=== PATIENT | female | born 1950 | race Caucasian/White ===

== ENCOUNTER → 2019-03-19 13:49 | Outpatient (CLI) | payer MEDICARE, OTHER, SELFPAY ==
[2019-03-19 09:38] VITALS: BMI 27.8
[2019-03-19 14:03] LABS: Mucous, Urine 0 SEEN /hpf (<or=2+)
[2019-03-19 14:05] LABS: Color, Urine Yellow (Yellow); Glucose, Dipstick Normal (Normal); Ketone-Dipstick Negative (Negative); Leukocyte Esterase-Dipstick 25 /ul (Negative); Nitrite-Dipstick Positive (Negative); Occult Blood-Urine 250 /ul (Negative); Protein-Dipstick Negative (Negative); Specific Gravity, Urine 1.015 (1.002-1.030); Urine Bilirubin Dipstick Negative (Negative); Urine Clarity Sl. Cloudy (Clear); Urine Urobilinogen Normal (Normal)
[2019-03-19 14:13] LABS: Bacteria 3+ /hpf (None Seen); Red Blood Cells-Urine 0-5 SEEN /hpf (0-5); Squamous Epithelial Cells - UA 0-5 SEEN /hpf (5-10); White Blood Cells 0-5 SEEN /hpf (0-5)
== END ==
PROVIDERS: Referring Provider Physician Assistant Surgical; Visit Provider Physician Assistant Surgical
DX: R31.9 Hematuria, unspecified (principal)
CPT/HCPCS: 81001; 87077; 87086; 87088; 87186

== ENCOUNTER → 2022-04-23 | Outpatient (CLI) | payer MEDICARE, OTHER, SELFPAY ==
[2022-04-23 10:40] LABS: Mucous, Urine 0 SEEN /hpf (<or=2+)
[2022-04-23 10:41] LABS: Color, Urine Red (Yellow); Glucose, Dipstick Normal (Normal); Ketone-Dipstick Negative (Negative); Leukocyte Esterase-Dipstick 25 /ul (Negative); Nitrite-Dipstick Negative (Negative); Occult Blood-Urine 250 /ul (Negative); Protein-Dipstick 30 mg/dl (Negative); Urine Bilirubin Dipstick Negative (Negative); Urine Clarity Sl. Cloudy (Clear); Urine Urobilinogen Normal (Normal)
[2022-04-23 10:49] LABS: Bacteria 1+ /hpf (None Seen); Red Blood Cells-Urine 25-50 SEEN /hpf (0-5); Squamous Epithelial Cells - UA 0-5 SEEN /hpf (5-10); White Blood Cells 0-5 SEEN /hpf (0-5)
== END | disposition home or self-care (01) ==
LOC: LABSPEC 10:26
PROVIDERS: Referring Provider Physician Assistant Surgical; Visit Provider Physician Assistant Surgical
DX: R31.9 Hematuria, unspecified (principal)
CPT/HCPCS: 81001; 87086; 87088

== ENCOUNTER 2022-05-06 14:23 | Outpatient (RCR) | payer MEDICARE, OTHER, SELFPAY ==
[2022-05-06 18:20] LABS: International Normalized Ratio 2.8; Prothrombin Time (Protime)PT. 28.8 SECONDS (11.7-14.9)
== END 2022-05-06 18:00 | disposition home or self-care (01) ==
LOC: MTLAB 14:23
DX: I48.0 Paroxysmal atrial fibrillation (principal); Z79.01 Long term (current) use of anticoagulants
CPT/HCPCS: 36415; 85610

== ENCOUNTER 2022-05-30 10:52 | Outpatient (RCR) | payer MEDICARE, OTHER, SELFPAY ==
[2022-05-30 12:22] LABS: International Normalized Ratio 2.7; Prothrombin Time (Protime)PT. 28.1 SECONDS (11.7-14.9)
== END 2022-05-30 18:00 | disposition home or self-care (01) ==
LOC: MTLAB 10:52
DX: I48.0 Paroxysmal atrial fibrillation (principal); Z79.01 Long term (current) use of anticoagulants
CPT/HCPCS: 36415; 85610

== ENCOUNTER → 2023-04-16 | Outpatient (CLI) | payer MEDICARE, OTHER, SELFPAY ==
--- NOTE | 2023-04-16 10:59 | RAD_ITS ---
INDICATION: injury EXAMINATION/TECHNIQUE: X-RAY - LEFT XR Ankle Min 3 Views 3 VIEWS COMPARISON: FINDINGS: SOFT TISSUES: There is extensive soft tissue edema surrounding the left ankle. BONES/JOINTS: No acute fracture or subluxation.. Normal alignment. Preservation of the joint space.. No sclerotic or destructive changes observed. RAD/Ankle min 3 Views IMPRESSION: Extensive soft tissue edema without evidence for acute fracture or dislocation. Electronically Signed: Guille Gracia, at 11:11 EDT ,
== END | disposition home or self-care (01) ==
LOC: MTRAD 10:57
PROVIDERS: Referring Provider Physician Assistant; Visit Provider Physician Assistant
DX: S93.402A Sprain of unspecified ligament of left ankle, initial encounter (principal); X58.XXXA Exposure to other specified factors, initial encounter
CPT/HCPCS: 73610

== ENCOUNTER → 2023-04-29 | Outpatient (CLI) | payer MEDICARE, OTHER, SELFPAY ==
[2023-04-29 14:29] LABS: International Normalized Ratio 3.6; Prothrombin Time (Protime)PT. 36.5 SECONDS (11.7-14.9)
== END | disposition home or self-care (01) ==
DX: I48.0 Paroxysmal atrial fibrillation (principal); Z79.01 Long term (current) use of anticoagulants
CPT/HCPCS: 36415; 85610

== ENCOUNTER 2023-05-22 10:01 | Outpatient (RCR) | payer MEDICARE, OTHER, SELFPAY ==
[2023-06-11 15:29] LABS: INR Fingerstick 1.8; Prothrombin Time Fingerstick 19.9 SEC (11.7-14.9)
== END 2023-05-22 18:00 | disposition home or self-care (01) ==
LOC: MTLAB 10:01
DX: I48.0 Paroxysmal atrial fibrillation (principal); Z79.01 Long term (current) use of anticoagulants
CPT/HCPCS: 36416; 85610

== ENCOUNTER 2024-05-06 10:07 | Outpatient (RCR) | payer MEDICARE, OTHER, SELFPAY ==
[2024-04-29 10:57] LABS: INR Fingerstick 1.7; Prothrombin Time Fingerstick 18.1 SEC (11.7-14.9)
[2024-05-06 10:25] LABS: INR Fingerstick 1.7; Prothrombin Time Fingerstick 17.9 SEC (11.7-14.9)
== END 2024-05-06 18:00 | disposition home or self-care (01) ==
LOC: MTLAB 10:07
DX: I48.0 Paroxysmal atrial fibrillation (principal)
CPT/HCPCS: 36416; 85610

== ENCOUNTER 2024-05-27 10:18 | Outpatient (RCR) | payer MEDICARE, OTHER, SELFPAY ==
[2024-05-27 12:22] LABS: International Normalized Ratio 3.8; Prothrombin Time (Protime)PT. 37.2 SECONDS (11.7-14.9)
== END 2024-05-27 18:00 | disposition home or self-care (01) ==
LOC: MTLAB 10:18
DX: I48.0 Paroxysmal atrial fibrillation (principal)
CPT/HCPCS: 36415; 85610

== ENCOUNTER → 2025-03-14 | Outpatient (CLI) | payer MEDICARE, OTHER, SELFPAY ==
[2025-03-14 09:50] LABS: Prothrombin Time Fingerstick 30.8 SEC (11.7-14.9)
--- OUTSIDE RECORDS SUMMARY | 2025-03-14 21:34 | XMS RPT_ITS | CCD ---
Author Organization [facility] Care Team Providers Care Flumer Name Role Phone ALLI Sadler Attending Provider [phone] Care Physician, No Primary Primary Care Provider Unavailable Care Physician, No Primary Referring Provider Un available ALLI Celeste Attending Provider ALLI Natarajan Attending Provider RICH, LAURIE Attending Unavailable RICH, LAURIE Referring Unavailable RICH, LAURIE Primary Care Unavailable RICH, LAURIE Attending Unavailable RICH, LAURIE Referring Unavailable RICH, LAURIE Primary Care Unavailable RICH, LAURIE Attending Unavailable RICH, LAURIE Referring Unavailable RICH, LAURIE Primary Care Unavailable Allergies Allergy Classification Reported Allergen(s) Allergy Type Date of Onset Reaction(s) Facility (5 sources) Codeine Drug Allergy 04-26-[address] [facility] (3 sources) egg extract Drug Allergy 04-16-[address] [facility] (1 source) Codeine Drug Allergy 04-26-2022 [facility] (1 source) egg extract Drug Allergy 04-16-2023 [facility] Medications Current Medications Medication Drug Class(es) Dates Sig (Normalized) Sig (Original) cephalexin 500 mg oral capsule (13 sources) Cephalosporin Antibacterial Start: 04-16-2023 take 500 mg by mouth three times daily Cephalexin Active 500 MG PO THREE TIMES A DAY April 16, 2023 12:00am Start: 04-22-2022 End: 05-02-2022 take 500 mg by mouth every twelve hours Cephalexin Discontinued 500 MG PO Q12H 11 07April 22, 2022 12:00am May 02, 2022 12:03am Start: 03-19-2019 End: 03-31-2019 take 500 mg by mouth every twelve hours Cephalexin Discontinued 500 MG PO Q12H 11 07March 19, 2019 12:00am March 31, 2019 12:07am dexamethasone 4 mg oral tablet (5 sources) Corticosteroid Start: 04-26-2022 take 1 tablet by mouth once daily Dexamethasone (Decadron) 4 mg tablet Active 4 MG PO DAILY April 26, 2022 12:00am levothyroxine sodium 0.1 mg oral capsule (5 sources) l-Thyroxine Start: 03-19-2019 take 1 capsule by mouth once daily levothyroxine 100 mcg capsule Active 100 MCG PO DAILY March 19, 2019 12:00am loxapine 25 mg oral capsule (5 sources) Start: 03-19-2019 Loxapine Succinate Active PO March 19, 2019 12:00am metFORMIN hydrochloride 1000 mg oral tablet (5 sources) Biguanide Start: 03-19-2019 take 1000 mg by mouth once daily Metformin Active 1000 MG PO DAILY March 19, 2019 12:00am metoprolol tartrate 25 mg oral tablet (5 sources) beta-Adrenergic Julianne Start: 03-19-2019 take 25 mg by mouth twice daily Metoprolol Tartrate Active 25 MG PO TWICE A DAY March 19, 2019 12:00am rivaroxaban 20 mg oral tablet (5 sources) Factor Xa Inhibitor Start: 03-19-2019 take 1 tablet by mouth once daily Rivaroxaban (Xarelto) 20 mg tablet Active 20 MG PO DAILY March 19, 2019 12:00am rosuvastatin calcium 10 mg oral tablet (5 sources) HMG-CoA Reductase Inhibitor Start: 03-19-2019 take 10 mg by mouth once daily Rosuvastatin Active 10 MG PO DAILY March 19, 2019 12:00am Completed/Discontinued Medications Medication Drug Class(es) Dates Sig (Normalized) Sig (Original) Nirmatrelvir-Ritona vir (5 sources) Start: 04-26-2022 End: 04-16-2023 Nirmatrelvir-Ritonav ir (Paxlovid (Eua)) 300 mg (150 mg x 2)-100 mg tablets,dose pack Discontinued 0 PO .COMPLEX April 26, 2022 12:00am April 16, 2023 10:48am take TWO 150 mg tablets of nirmatrelvir with ONE 100 mg tablet of ritonavir twice daily for 5 days PO Start: 04-26-2022 Nirmatrelvir-R itonavir (Paxlovid (Eua)) 300 mg (150 mg x 2)- 100 mg tablets,dose pack Active 0 PO .COMPLEX April 26, 2022 12:00am take TWO 150 mg tablets of nirmatrelvir with ONE 100 mg tablet of ritonavir twice daily for 5 days PO Problems Problem Classification Problem Date Documented Da te Episodic/Chronic Cardiac dysrhythmias (1 source) Paroxysmal atrial fibrillation; Translations: [Paroxysmal atrial fibrillation] Onset: 06-22-2024 Chronic Other non-traumatic joint disorders (3 sources) Ankle edema; Translations: [Effusion, left ankle] 04-16-2023 Episodic Other non-traumatic joint disorders (3 sources) Effusion, left ankle; Translations: [Effusion of joint, ankle and foot] 04-16-2023 Episodic Skin and subcutaneous tissue infections (6 sources) Cellulitis of left ankle; Translations: [Cellulitis of left lower limb] 04-16-2023 Episodic Sprains and strains (6 sources) Sprain of ankle; Translations: [Sprain of unspecified ligament of left ankle, initial encounter] 04-16-2023 Episodic Urinary tract infections (7 sources) Cystitis; Translations: [Cystitis, unspecified without hematuria] Episodic Viral infection (7 sources) Disease caused by 2019-nCoV; Translations: [COVID-19] Episodic Results Test Name Value Interpretation Reference Range Facil ity Prothrombin Time w/INRon INR Coag (PPP) [Relative time] 3.8 {INR} Normal [facility] Comment on above: Performed By: #### L 300.3900 #### [facility] [address] [place], [place], [id number] PT Coag (PPP) [Time] 37.2 s High 11.7-14.9 [facility] Comment on above: Performed By: #### L 300.3900 #### [facility] [address] [place], [address] Protime w/INR Fingerstickon 05-06-2024 INR Coag (PPP) [Relative time] 1.7 {INR} Normal [facility] Comment on above: Result Comment: Crit ical Value > 4.0 Performed By: #### L [id number] #### [facility] [address] [place], [address] Protime [place] 17.9 SEC High 11.7-14.9 [facility] Comment on above: Performed By: #### L [id number] #### [facility] [address] [place], [address] Protime w/INR Fingerstickon 04-29-2024 INR Coag (PPP) [Relative time] 1.7 {INR} Normal [facility] Comment on above: Result Comment: Crit ical Value > 4.0 Performed By: #### L [id number] #### [facility] [address] [place], [address] Protime [place] 18.1 SEC High 11.7-14.9 [facility] Comment on above: Performed By: #### L [id number] #### [facility] [address] [place], [address] INR in Blood by Coagulation assayon 04-29-2023 INR Coag (Bld) [Relative time] 3.6 {INR} [facility] - Coagulationon 0 04-29-2023 PT Coag (PPP) [Time] 36.5 s 11.7-14.9 [facility] INR in Blood by Coagulation assayon 05-30-2022 INR Coag (Bld) [Relative time] 2.7 {INR} [facility] Work Phone: Laboratory - Coagulationon 0 05-30-2022 PT Coag (PPP) [Time] 28.1 s 11.7-14.9 [facility] Work Phone: INR in Blood by Coagulation assayon 05-06-2022 INR Coag (Bld) [Relative time] 2.8 {INR} [facility] Work Phone: Laboratory - Coagulationon 0 05-06-2022 PT Coag (PPP) [Time] 28.8 s 11.7-14.9 [facility] Work Phone: Laboratory - Microbiology an d Antimicrobial susceptibilityon 04-26-2022 SARS-CoV-2 (COVID-19) RNA MAURILIO+probe Ql (Unsp spec) Detected [facility] Work Phone: No Panel Informationon 04-26 POC Nasal Swab Influenza A,B Not detected [facility] Work Phone: POC Nasal Swab RSV Not detected [facility] Work Phone: Basophil percentageon 2021 Basophil percentage 0-5 SEEN /hpf 0-5 [facility] Work Phone: Bilirubin Test strip Ql (U)o n 04-23-2022 Bilirubin Ql (U) Negative Negative [facility] Work Phone: Ketones Test strip Ql (U)on 04-23-2022 Ketones Ql (U) Negative Negative [facility] Work Phone: Mucus LM Ql (Urine sed)on Mucus Ql (Urine sed) 0 SEEN /hpf [facility] Work Phone: Nitrite Test strip Ql (U)on 04-23-2022 Nitrite Ql (U) Negative Negative [facility] Work Phone: Protein Test strip Ql (U)on 04-23-2022 Protein Ql (U) 30 mg/dl Negative [facility] Work Phone: Squamous epithelial cells de tection in urine sediment by light microscopyon 04-23-2022 Epithelial cells.squamous LM Ql (Urine sed) 0-5 SEEN /hpf 5-10 [facility] Work Phone: Urine blood detectionon RBC Ql (U) 250 /ul Negative [facility] Work Phone: RBC Ql (U) 25-50 SEEN /hpf 0-5 [facility] Work Phone: Urine clarityon 04-23-2022 Clarity (U) Sl. Cloudy Clear [facility] Work Phone: Urine color determinationon 04-23-2022 Color (U) Red Yellow [facility] Work Phone: Urine glucose detectionon Glucose Ql (U) Normal mg/dl Normal [facility] Work Phone: Urine leukocyte esterase det ection by dipstickon 04-23-2022 Leukocyte esterase Test strip Ql (U) 25 /ul Negative [facility] Work Phone: Urine pHon 04-23-2022 pH (U) 6.0 [pH] 5.0 - 8.0 [facility] Work Phone: Urine sediment bacteria coun t by microscopy (number/high power field)on 04-23-2022 Bacteria LM.HPF (Urine sed) [#/Area] 1 /[HPF] None Seen [facility] Work Phone: Urine specific gravity measu rementon 04-23-2022 Specific gravity (U) [Rel density] 1.010 1.002-1.030 [facility] Work Phone: Urobilinogen Auto test strip Ql (U)on 04-23-2022 Urobilinogen Ql (U) Normal mg/dl Normal [facility] Work Phone: Laboratory - Chemistry and C hemistry - challengeon 04-22-2022 Bilirubin Ql (U) Negative [facility] Work Phone: Glucose Ql (U) Negative [facility] Work Phone: Ketones Ql (U) Trace (5) [facility] Work Phone: pH (U) 6.0 [pH] [facility] Work Phone: Specific gravity (U) [Rel density] 1.015 [facility] Work Phone: Urobilinogen (U) [Mass/Vol] Negative [facility] Work Phone: Laboratory - Hematology and Cell countson 04-22-2022 Hemoglobin Ql (U) Hemolyzed [facility] Work Phone: Laboratory - Specimen inform ationon 04-22-2022 Clarity (U) Cloudy [facility] Work Phone: Color (U) ORANGE [facility] Work Phone: Laboratory - Urinalysison Nitrite Ql (U) Negative [facility] Work Phone: Protein Ql (U) Negative [facility] Work Phone: No Panel Informationon 04-[address] [facility] Work Phone: Urine Non-Hemolyzed Blood Large [facility] Work Phone: Culture, urine Bacteria identified Cx Nom (U) Positive [facility] Work Phone: Vital Signs Date Time Vital Sign Value Performing Clinician Facility 04-16-2023 10:46-0400 Body temperature 98 [degF] ALLI CARSON Work Phone: [facility] 04-16-2023 10:46-0400 Diastolic blood pressure 78 mm[Hg] ALLI CARSON Work Phone: [facility] 04-16-2023 10:46-0400 Heart rate 72 /min ALLI CARSON Work Phone: [facility] 04-16-2023 10:46-0400 Respiratory rate 14 /min ALLI CARSON Work Phone: [facility] 04-16-2023 10:46-0400 SaO2% (BldA) [Mass fraction] 96 % ALLI CARSON Work Phone: [facility] 04-16-2023 10:46-0400 Systolic blood pressure 118 mm[Hg] ALLI CARSON Work Phone: [facility] 04-26-2022 09:56-0400 Body temperature 100.4 [degF] No Primary Care Physician [facility] Work Phone: 04-26-2022 09:56-0400 Diastolic blood pressure 80 mm[Hg] No Primary Care Physician [facility] Work Phone: 04-26-2022 09:56-0400 Heart rate 96 /min No Primary Care Physician [facility] Work Phone: 04-26-2022 09:56-0400 Respiratory rate 17 /min No Primary Care Physician [facility] Work Phone: 04-26-2022 09:56-0400 SaO2% (BldA) [Mass fraction] 96 % No Primary Care Physician [facility] Work Phone: 04-26-2022 09:56-0400 Systolic blood pressure 140 mm[Hg] No Primary Care Physician [facility] Work Phone: 04-22-2022 16:49-0400 Body temperature 97.8 [degF] No Primary Care Physician [facility] Work Phone: 04-22-2022 16:49-0400 Diastolic blood pressure 74 mm[Hg] No Primary Care Physician [facility] Work Phone: 04-22-2022 16:49-0400 Heart rate 64 /min No Primary Care Physician [facility] Work Phone: 04-22-2022 16:49-0400 Respiratory rate 14 /min No Primary Care Physician [facility] Work Phone: 04-22-2022 16:49-0400 SaO2% (BldA) [Mass fraction] 99 % No Primary Care Physician [facility] Work Phone: 04-22-2022 16:49-0400 Systolic blood pressure 128 mm[Hg] No Primary Care Physician [facility] Work Phone: Encounters Encounter Date Encounter Type Care Provider Facility Start: 06-22-2024 ambulatory [facility] Facility:[facility] Start: 05-27-2024 End: 05-27-2024 ambulatory [facility] Facility:[facility] Start: 05-06-2024 End: 05-06-2024 ambulatory [facility] Facility:[facility] Start: 05-22-2023 End: 05-22-2023 ambulatory PA Daniel CARSON Work Phone: [facility] Work Phone: Start: 05-22-2023 End: 05-22-2023 Discharged Recurring PA Daniel CARSON Work Phone: [facility] Work Phone: Start: 04-29-2023 End: 04-29-2023 ambulatory PA Daniel CARSON Work Phone: [facility] Work Phone: Start: 04-29-2023 End: 04-29-2023 Patient encounter procedure PA Daniel CARSON Work Phone: [facility] Work Phone: Start: 04-16-2023 End: 04-16-2023 ambulatory PA Daniel CARSON Work Phone: [facility] Work Phone: Start: 04-16-2023 End: 04-16-2023 Patient encounter procedure PA Daniel CARSON Work Phone: [facility] Work Phone: Start: 05-30-2022 End: 05-30-2022 ambulatory No Primary Care Physician [facility] Work Phone: Start: 05-30-2022 End: 05-30-2022 Discharged Recurring No Primary Care Physician [facility] Start: 05-06-2022 End: 05-06-2022 ambulatory No Primary Care Physician [facility] Work Phone: Start: 05-06-2022 End: 05-06-2022 Discharged Recurring No Primary Care Physician [facility] Start: 04-26-2022 End: 04-26-2022 Patient encounter procedure No Primary Care Physician [facility] Start: 04-23-2022 End: 08-02-2022 Patient encounter procedure No Primary Care Physician [facility] Spec[facility] Start: 04-22-2022 End: 04-22-2022 Patient encounter procedure No Primary Care Physician [facility] Procedures Date Procedure Procedure Detail Performing Clinician Start: 04-16-2023 Radiography of ankle PA Daniel CARSON Work Phone: Urine culture No Primary Car e Physician Plan of Treatment Date Care Activity Detail Author Start: 04-16-2023 Patient referral [facility] Work Phone: Patient referral [facility] Work Phone: Payers Date Payer Category Payer Medicare [id number] 2024 Self-pay [id number] 2024 Unknown [id number] Unknown [employer] STATE [id number] Unknown [id number] Unknown [id number] Unknown [id number] Social History Date Type Detail Facility Tobacco smoking stat [facility] Unknown if ever smoked [facility] Work Phone: Start: 1950 Sex Assigned At Female [facility] Evaluation note Note Date & Type Note Facility Evaluation note Diagnosis Onset Date Cystitis acute COVID-[address] [facility] Work Phone: Evaluation note Note Date & Type Note Facility Evaluation note Diagnosis Onset Date Cellulitis of left ankle acu te Edema of left ankle acute Left ankle sprain acute [facility] Work Phone: Chief Complaint and Reason for Visit Chief Complaint BLOOD IN URINE SORE THROAT/L EAR ACHE S/O PROTIME-INR Reason for Visit Cystitis COVID-19 Chief Complaint BLOOD IN URINE SORE THROAT/L EAR ACHE S/O PROTIME-INR S/O PROTIME-INR Reason for Visit Cystitis COVID-19 Chief Complaint LT ANKLE INJURY/RED, SWOLLEN Reason for Visit Cellulitis of left a nkle Edema of left ankle Left ankle sprain Chief Complaint LT ANKLE INJURY/RED, SWOLLEN S/O- Reason for Visit Cellulitis of left a nkle Edema of left ankle Left ankle sprain Chief Complaint LT ANKLE INJURY/RED, SWOLLEN S/O- STANDING ORDER Reason for Visit Cellulitis of left a nkle Edema of left ankle Left ankle sprain Summary Purpose Family History No Family History Records Found Advance Directives No Advanced Directives Records Found Additional Source Comments Goals (unrecognized section and content) Goals may be documented in a n alternate sectionGoals may be documented in an alternate sectionGoals may be documented in an alternate sectionGoals may be documented in an alternate sectionGoals may be documented in an alternate section Care Teams (unrecognized sec tion and content) Team Status: Active Member Role Status Dates PRAVEEN BENNETT Primary Care Provider Active Team Status: Inactive Member Role Status Dates ALLI Madera Attending Provider Active Team Status: Inactive Member Role Status Dates SABRINA HUGHES Primary Care Provider Active ALLI Madera Attending Provider, Referring Pr ovider Active Team Status: Inactive Member Role Status Dates SABRINA HUGHES Primary Care Provide r, Attending Provider, Referring Provider Active INFORMATION SOURCE (unrecogn ized section and content) DATE CREATED AUTHOR 06/23/2024 [facility] FOR RECORDS PERTAINING TO PATIENTS WHO ARE OR HAVE BEEN ENROLLED IN A CHEMICAL DEPENDENCY/SUBSTANCEABUSE PROGRAM, SOME INFORMATION MAY BE OMITTED. This clinical summary was aggregated from multiple sources. Caution should be exercised in using it in the provision of clinical care. This summary normalizes information from multiple sources, and as a consequence, information in this document may materially change the coding, format and clinical context of patient data. In addition, data may be omitted in some cases. CLINICAL DECISIONS SHOULD BE BASED ON THE PRIMARY CLINICAL RECORDS. [facility]. provides no warranty or guarantee of the accuracy or completeness of information in this document.
== END | disposition home or self-care (01) ==
LOC: LAB 09:37
DX: Z79.01 Long term (current) use of anticoagulants (principal)
CPT/HCPCS: 36416; 85610